=== PATIENT | female | born 1940 | race Caucasian/White ===

== ENCOUNTER 2017-05-11 07:53 | Outpatient (CLI) | payer MEDICARE, BC | END 2017-05-11 07:54 | disposition home or self-care (01) | LOC: BICMAMMO 07:53 | PROVIDERS: ATTEND Internal Medicine | DX: Z12.31 Encounter for screening mammogram for malignant neoplasm of breast (principal); Z13.820 Encounter for screening for osteoporosis; M81.0 Age-related osteoporosis without current pathological fracture | CPT/HCPCS: 77063; 77067; 77080 ==

== ENCOUNTER 2017-07-15 08:08 | Outpatient (CLI) | payer MEDICARE, BC | END 2017-07-15 08:09 | disposition home or self-care (01) | LOC: BICRAD 08:08 | PROVIDERS: ATTEND Internal Medicine | DX: R05 Cough (principal) | CPT/HCPCS: 71046 ==

== ENCOUNTER 2017-08-10 07:42 | Outpatient (CLI) | payer MEDICARE, BC | END 2017-08-10 07:43 | disposition home or self-care (01) | LOC: BICCT 07:42 | PROVIDERS: ATTEND Internal Medicine | DX: J32.9 Chronic sinusitis, unspecified (principal); J34.89 Other specified disorders of nose and nasal sinuses ==

== ENCOUNTER 2018-01-13 15:03 | Outpatient (CLI) | payer MEDICARE, BC ==
[~2018-01-13 15:03] MED LIST: Gadobenate Dimeglumine 529 MG/1 ML (20ML VIAL) ONE
== END 2018-01-13 15:04 | disposition home or self-care (01) ==
LOC: BICMRI 15:03
PROVIDERS: ATTEND Internal Medicine
DX: R47.81 Slurred speech (principal); R20.2 Paresthesia of skin; R42 Dizziness and giddiness; R53.1 Weakness; H74.8X1 Other specified disorders of right middle ear and mastoid
CPT/HCPCS: 70553; 82565; A9579

== ENCOUNTER 2018-05-14 07:52 | Outpatient (CLI) | payer MEDICARE, BC | END 2018-05-14 07:53 | disposition home or self-care (01) | LOC: BICMAMMO 07:52 | PROVIDERS: ATTEND Internal Medicine | DX: Z12.31 Encounter for screening mammogram for malignant neoplasm of breast (principal); R92.1 Mammographic calcification found on diagnostic imaging of breast | CPT/HCPCS: 77063; 77067 ==

== ENCOUNTER 2018-06-23 08:21 | Outpatient (CLI) | payer MEDICARE, BC ==
--- NOTE | 2018-06-23 10:33 | BD ---
Exam: DEXA Bone Density Date: 06-23-18 Comparison: 05-11-17 History: Osteoporosis. Lumbar Spine: BMD (g/cm2) Previous L1 0.722 T-Score: -2.4 -2.3 L2 0.730 T-Score: -2.7 -2.7 L3 0.911 T-Score: -1.6 -2.3 L4 1.015 T-Score: -0.4 -1.6 L1-L4 0.852 T-Score: -1.8 -2.2 Femoral Neck: 0.425 T-Score: -3.8 -3.8 Total Femur: 0.507 T-Score: -3.6 -3.3 The FRAX/WHO fracture risk assessment tool was not reported as some T-scores are at or below -2.5 Impression: Femoral neck osteoporosis, correlating with a high risk for fracture. Osteopenia is noted throughout the lumbar spine with focal osteoporosis at L2. POS: ANNELISE
== END 2018-06-23 08:22 | disposition home or self-care (01) ==
LOC: BICMAMMO 08:21
PROVIDERS: ATTEND Internal Medicine Rheumatology
DX: M81.0 Age-related osteoporosis without current pathological fracture (principal); M85.88 Other specified disorders of bone density and structure, other site
CPT/HCPCS: 77080

== ENCOUNTER 2018-11-15 08:26 | Outpatient (CLI) | payer MEDICARE, BC ==
--- NOTE | 2018-11-15 10:45 | ULT ---
Renal sonogram HISTORY: Recurrent urinary tract infections. FINDINGS: Right kidney is 11.2 cm. Multiple cysts measuring up to 1.2 cm. No solid masses.. No hydron ephrosis. Left kidney is 11.2 cm. Largest cyst is at the inferior pole measuring up to 4.6 cm. No hydronephrosi s. Urinary bladder shows no focal abnormalities. Prevoid volume of 206 cc. Postvoid volume of 28 cc. IMPRESSION: Bilateral renal cysts. No evidence of urinary tract obstruction. No focal bladder abnormalities. Small post void urinary bladder residual, 28 cc.
== END 2018-11-15 08:27 | disposition home or self-care (01) ==
LOC: ULT 08:26
PROVIDERS: ATTEND Internal Medicine
DX: N39.0 Urinary tract infection, site not specified (principal); R39.81 Functional urinary incontinence; Z87.440 Personal history of urinary (tract) infections; N28.1 Cyst of kidney, acquired
CPT/HCPCS: 76770

== ENCOUNTER 2019-05-16 09:08 | Outpatient (CLI) | payer MEDICARE, BC ==
--- NOTE | 2019-05-16 11:51 | MMO ---
Bilateral MAMMO Bilat Screen [facility]. CLINICAL HISTORY: Patient is 79 years old and is seen for screening. The patient has no family history of breast cancer. The patient has no personal history of cancer. VIEWS: The views performed were: bilateral craniocaudal with tomosynthesis and bilateral mediolateral oblique with tomosynthesis. FILMS COMPARED: The present examination has been compared to prior imaging studies performed at [facility] on 04/17/2015, 04/21/2016, 05/11/2017 and 05/14/2018. This study has been interpreted with the assistance of computer-aided detection. MAMMOGRAM FINDINGS: The breasts are heterogeneously dense, which could obscure a lesion on mammography. There are no suspicious masses, suspicious calcifications, or new areas of architectural distortion. IMPRESSION: THERE IS NO MAMMOGRAPHIC EVIDENCE OF MALIGNANCY. A ROUTINE FOLLOW-UP MAMMOGRAM IN 1 YEAR IS RECOMMENDED. THE RESULTS OF THIS EXAM WERE SENT TO THE PATIENT. ACR BI-RADS Category 1 - Negative MAMMOGRAPHY NOTE: 1. A negative mammogram report should not delay a biopsy if a dominant of clinically suspicious mass is present. 2. Approximately 10% to 15% of breast cancers are not detected by mammography. 3. Adenosis and dense breasts may obscure an underlying neoplasm. Reported by: WILBERT TOBIN MD Electonically Signed: [id number]
== END 2019-05-16 09:09 | disposition home or self-care (01) ==
LOC: BICMAMMO 09:08
PROVIDERS: ATTEND Internal Medicine
DX: Z12.31 Encounter for screening mammogram for malignant neoplasm of breast (principal)
CPT/HCPCS: 77063; 77067

== ENCOUNTER 2019-06-28 08:33 | Outpatient (CLI) | payer MEDICARE, BC ==
--- NOTE | 2019-06-28 09:04 | BD ---
EXAM: DEXA bone density examination HISTORY: 79-year-old postmenopausal female for screening COMPARISON: 06/23/2018 FINDINGS: L1--bone mineral density 0.747 g/sq cm; T score -2.2 L2--bone mineral density 0.718 g/sq cm; T score -2.8 L3--bone mineral density 0.847 g/sq cm; T score -2.2 L4--bone mineral density 1.013 g/sq cm; T score -0.4 Total L1-L4--bone mineral density 0.849 g/sq cm; T score -1.8 Left femoral neck--bone mineral density0.593; T score -2.3 Total proximal left femur--bone mineral density 0.541; T score -3.3 IMPRESSION: Osteopenia.
== END 2019-06-28 08:34 | disposition home or self-care (01) ==
LOC: BICMAMMO 08:33
PROVIDERS: ATTEND Internal Medicine Rheumatology
DX: M81.0 Age-related osteoporosis without current pathological fracture (principal); M85.89 Other specified disorders of bone density and structure, multiple sites
CPT/HCPCS: 77080

== ENCOUNTER 2019-11-03 13:51 | Inpatient (IN) | payer MEDICARE, BC ==
[2019-11-03] MEDS ORDERED: Morphine 4 MG/ML VIAL ONE ×2 (15:16→16:38)
--- NOTE | 2019-11-03 15:48 | RAD ---
Exam:Left femur 2 views HISTORY: Fall. Pain. COMPARISON: None FINDINGS: Comminuted intertrochanteric fracture with dislocation of the lesser trochanter. IMPRESSION: Intertrochanteric fracture.
--- NOTE | 2019-11-03 15:50 | RAD ---
Exam: One view pelvis HISTORY: Fall. Pain Comparison none FINDINGS: Chronic changes of the symphysis pubis. Probable remote injury involving the left and right inferior pubic rami. If there is concern for acute injury, pelvic CT can be performed. Visualized sacral ala and bony pelvis appear to be intact. Evaluation is limited by overlying bowel g as and fecal material. Uncomplicated right hip arthroplasty. Intertrochanteric fracture with displacement of the lesser trochanter. IMPRESSION: 1. Left hip fracture. 2. Indeterminate injury involving the left and right inferior pubic rami. Correlate clinically.
[2019-11-03 15:54] LABS: #Basophils 0.1 thou/uL (0.0-0.2); #Eosinphils 0.1 thou/uL (0.0-0.7); #Lymphocytes 1.3 thou/uL (1.20-3.40); #Monocytes 0.8 thou/uL (0.11-0.59); #Neutrophils 7.1 thou/uL (1.40-6.50); %Basophils 1.2 % (0.0-1.0); %Eosinophils 0.9 % (0.0-10.0); %Lymphocytes 13.6 % (21.0-51.0); %Monocytes 8.2 % (0.0-10.0); %Neutrophils 76.1 % (42.0-75.0); Hemoglobin 13.7 g/dL (12.0-16.0); Mean Corpuscular HGB CONC 32.9 g/dL (32.0-36.0); Mean Corpuscular Hemoglobin 32.6 pg (27.0-31.0); Mean Corpuscular Volume 98.9 fL (78.0-98.0); Mean Platelet Volume 9.9 fL (7.4-10.4); Platelet Count 175 thou/uL (130-400); RBC Distribution Width 11.5 % (11.5-14.5); White Blood Cell (WBC) Count 9.3 thou/uL (4.8-10.8)
[2019-11-03 16:15] LABS: ALT (SGPT) 16 U/L (8-55); AST (SGOT) 26 U/L (5-34); Albumin 4.3 g/dL (3.4-4.8); Alkaline Phosphatase 46 U/L (40-110); Anion Gap 16 mmol/L (10-20); BUN (Urea Nitrogen) 17 mg/dL (9.8-20.1); Calc. Creatinine Clearance 0 mL/min (70-130); Calcium 9.9 mg/dL (7.8-10.44); Carbon Dioxide 24 mmol/L (23-31); Chloride 105 mmol/L (98-107); Estimated GFR-MDRD 66; Globulin 2.7 g/dL (2.4-3.5); Glucose 138 mg/dL (83-110); Potassium 5.1 mmol/L (3.5-5.1); Sodium 140 mmol/L (136-145)
--- NOTE | 2019-11-03 16:31 | RAD ---
LEFT HIP 2 VIEWS: Date: 11/03/2019 HISTORY: Fall with injury. FINDINGS/IMPRESSION: Comminuted, displaced intertrochanteric fracture proximal femur is noted. There is mild angulation an d displacement of the fragments. POS: [facility]
[2019-11-03] MEDS ORDERED: Dextrose 50% Abboject 50 ML SYRINGE SLOW IVP PRN (17:03)
[2019-11-03] MEDS ORDERED: Dextrose 5% in Water 1,000 ML IV PRN (17:03)
[2019-11-03] MEDS ORDERED: Promethazine HCl 25 MG/ML VIAL IM PRN (17:03)
[2019-11-03] MEDS ORDERED: Ondansetron PF 4 MG/2 ML Vial IVP PRN (17:03)
[2019-11-03] MEDS ORDERED: Ketorolac Tromethamine 30 MG/ML VIAL IVP SCH (17:15)
--- NOTE | 2019-11-03 17:37 | CON ---
DATE OF CONSULTATION: CHIEF COMPLAINT: Left hip pain. HISTORY OF PRESENT ILLNESS: Ms. Anderson is a 79-year-old female who was walking on her uneven driveway. She tripped and lost her balance. She fell backward onto her butt. She had pain in her leg. She was unable to ambulate or rise. X-rays have been obtained after she was taken to the hospital for evaluation. She is currently in the emergency department. X-rays have shown an intertrochanteric femur fracture on the left. She has known osteoporosis. She has received pain control. PAST MEDICAL HISTORY: 1. Osteoporosis. 2. Hypertension. PAST SURGICAL HISTORY: 1. Appendectomy. 2. Knee arthroscopic surgery. ALLERGIES: NO KNOWN DRUG ALLERGIES. MEDICATIONS: The patient reports only taking a blood pressure medicine. IMAGING STUDIES: X-rays of the pelvis and left hip demonstrated an intertrochanteric femur fracture, which is displaced with shortening of the femur. PHYSICAL EXAMINATION: VITAL SIGNS: Stable. She is afebrile. GENERAL: She is alert and oriented, in no apparent distress, lying supine. HEENT: Normocephalic and atraumatic. RESPIRATORY: Breathing comfortably. ABDOMEN: Soft, nontender, and nondistended. MUSCULOSKELETAL: The patient's left leg is shortened and externally rotated. She has palpable dorsalis pedis pulse. She can flex and extend the toes and ankle. She has skin intact. Upper extremities and right lower extremity are atraumatic. IMPRESSION: Left intertrochanteric femur fracture in an elderly female with osteoporosis. PLAN: At this point, the patient will need to go to the operating room for intramedullary nail stabilization of her femur. She has had review of her risks and benefits. She wants to proceed with surgery. She will be n.p.o. She will have pain control. She will have antibiotics on-call to the operating room. Job ID: [id number]
[2019-11-03] MEDS ORDERED: CEFAZOLIN 2 GM in Premix Bag 1 BAG IVPB SCH (19:00)
[2019-11-03] MEDS ORDERED: Midazolam HCl 2 mg/2 ml Vial ONE (22:40)
[2019-11-03] MEDS ORDERED: Fentanyl 100 MCG/2 ML VIAL ONE (22:40)
[2019-11-03] MEDS ORDERED: Dexamethasone 20 MG/5 ML VIAL ONE (23:06)
[2019-11-03] MEDS ORDERED: Succinylcholine Chloride 20 MG/ML 10 ml SYRINGE FS ONE (23:06)
[2019-11-03] MEDS ORDERED: EPHEDRINE 25 MG/5 ML SYRINGE ONE (23:06)
[2019-11-03] MEDS ORDERED: Rocuronium Bromide 10 MG/ML (10ML VIAL) ONE (23:06)
[2019-11-03] MEDS ORDERED: Ketorolac Tromethamine 30 MG/ML VIAL ONE (23:06)
[2019-11-03] MEDS ORDERED: Glycopyrrolate 0.2 MG/ML 5 ML SYRINGE ONE (23:06)
[2019-11-03] MEDS ORDERED: PROPOFOL 200 MG/20 ML VIAL ONE (23:06)
[2019-11-03] MEDS ORDERED: Ondansetron PF 4 MG/2 ML Vial ONE (23:06)
--- NOTE | 2019-11-04 | OP ---
DATE OF PROCEDURE: 11/03/2019 PROCEDURE PERFORMED: Left femur intramedullary nail. PREOPERATIVE DIAGNOSIS: Left displaced intertrochanteric femur fracture. POSTOPERATIVE DIAGNOSIS: Left displaced intertrochanteric femur fracture. COMPLICATIONS: None. ESTIMATED BLOOD LOSS: 100 mL. ANESTHESIA: General. IMPLANT: Synthes 11 mm short trochanteric nail with helical blade. INDICATIONS: Ms. Anderson is a 79-year-old female, who has fallen and fractured her left intertrochanteric femur. She has been indicated for intramedullary nail fixation of the femur to restore anatomic alignment and promote healing and allow immobilization. Risks have been reviewed in detail. She has elected to proceed with the operation. DESCRIPTION OF PROCEDURE: Ms. Anderson was identified in the preoperative holding area. Her correct extremity was marked. She was carried to the operating room. She was positioned supine. General anesthesia was induced. A multidisciplinary time-out was performed. The left lower extremity was prepped and draped in sterile fashion. We began the procedure with making a small incision proximal to the greater trochanter. We dissected down to the tip of the trochanter and inserted a guidewire. We over-reamed the guidewire. We then inserted our 11 mm trochanteric nail. We seated this appropriately. We then passed a guidewire into the centered position of the femoral head. This was overdrilled. We then impacted the helical blade and locked this in a dynamic position. Finally, we placed a distal Crosslock screw. We took x-ray images confirming hardware placement. There were no complications. We thoroughly irrigated and closed all wounds in layers. A sterile dressing was applied. The patient was taken to the recovery room in good condition. Job ID: [id number]
[2019-11-04] MEDS ORDERED: Ondansetron HCl/PF 4 MG/2 ML Vial IVP PRN (00:01)
[2019-11-04] MEDS ORDERED: Fentanyl 100 MCG/2 ML VIAL ONE ×2 (00:04→00:27)
--- NOTE | 2019-11-04 00:17 | RAD ---
XR Hip Lt 2-3 View History: ORIF left hip Comparison: Hip radiograph same day Findings: Intramedullary nail with antirotation screw intertrochanteric fracture left femur. Impression: Satisfactory postoperative appearance.
--- NOTE | 2019-11-04 01:03 | PRG ---
DATE OF SERVICE: 11/03/2019 SUBJECTIVE: The patient was seen during evening rounds in the post acute care unit. The patient just had a left femur intramedullary nail placement for her left intertrochanteric femur fracture by Dr. Lemon. The patient is currently sleepy, arousable. The patient's pain is well controlled at this time. OBJECTIVE: VITAL SIGNS: Stable. GENERAL: Well-appearing elderly female, in no acute distress. RESPIRATORY: Equal chest rise and fall, respirations are even and nonlabored. ASSESSMENT: 1. Status post mechanical fall. 2. Left intertrochanteric femur fracture, postop day #0, intramedullary nail placement. 3. Acute traumatic pain. 4. History of hypertension and osteoporosis. PLAN: Regular diet as tolerated. Continue Quiñonez catheter overnight. We will have Physical and Occupational Therapy work with the patient in the morning. Pain control and bowel regimen. We will repeat labs in the morning. As long as the patient's hemoglobin and hematocrit are stable, the patient will be placed on chemical VTE prophylaxis. Rehab screen has been placed as the patient will most likely need additional physical and occupational therapy. Job ID: [id number]
[2019-11-04] MEDS: Sodium Chloride 0.9% 1,000 ML IV SCH ×3 (01:16→11:32)
[2019-11-04] MEDS: Famotidine/PF 20 mg/2ml Vial SLOW IVP SCH ×3 (01:16→19:59)
[2019-11-04 01:25] VITALS: BMI 18.8
[2019-11-04 05:44] LABS: #Lymphocytes 0.4 thou/uL (1.20-3.40); #Monocytes 0.6 thou/uL (0.11-0.59); %Lymphocytes 3.1 % (21.0-51.0); %Monocytes 4.2 % (0.0-10.0); %Neutrophils 92.8 % (42.0-75.0); Mean Corpuscular HGB CONC 32.9 g/dL (32.0-36.0); Mean Corpuscular Hemoglobin 32.7 pg (27.0-31.0); Mean Corpuscular Volume 99.5 fL (78.0-98.0); Mean Platelet Volume 9.6 fL (7.4-10.4); Platelet Count 161 thou/uL (130-400); RBC Distribution Width 11.4 % (11.5-14.5); Red Blood Cell (RBC) Count 3.07 mill/uL (4.20-5.40)
[2019-11-04] MEDS: CEFAZOLIN 2 GM in Premix Bag 1 BAG IVPB SCH ×2 (05:45→14:57)
[2019-11-04 05:50] LABS: Anion Gap 9 mmol/L (10-20); BUN (Urea Nitrogen) 16 mg/dL (9.8-20.1); Calc. Creatinine Clearance 51 mL/min (70-130); Calcium 7.6 mg/dL (7.8-10.44); Carbon Dioxide 23 mmol/L (23-31); Chloride 109 mmol/L (98-107); Estimated GFR-MDRD 71; Glucose 215 mg/dL (83-110); Magnesium 1.8 mg/dL (1.6-2.6); Phosphorus 3.7 mg/dL (2.3-4.7); Potassium 4.4 mmol/L (3.5-5.1); Sodium 137 mmol/L (136-145)
[2019-11-04] MEDS: traMADol HCl 50 MG TAB PO PRN ×2 (08:44→16:57)
[2019-11-04] MEDS ORDERED: Magnesium 2 GM/50 ML 2 GM in Premix Bag 1 BAG IVPB SCH (10:00)
[2019-11-04] MEDS ORDERED: PHOS-NAK 1 PKT PACK PO SCH (10:00)
--- NOTE | 2019-11-04 10:39 | HP ---
HISTORY OF PRESENT ILLNESS: A 79-year-old woman was ambulating, she was wearing a pair of tennis shoes. The patient reportedly tripped on a cracked concrete sidewalk and fell, landing on her left hip. She immediately experienced pain. She was transported via ground EMS to [facility]. She arrived hemodynamically stable. She denies any head trauma or loss of consciousness. She is complaining of left hip pain, which she rated at 5/10 after administration of intravenous analgesics. She otherwise moved all extremities and answers questions appropriately. Her Windy Coma Scale remains at 15. She denies any chest pain, syncope, or dyspnea. She denies any abdominal pain. PAST MEDICAL HISTORY: Pertinent for: 1. Essential hypertension. 2. Osteoporosis. 3. Degenerative arthritic disease. 4. Hyperlipidemia. PAST SURGICAL HISTORY: Pertinent for: 1. Right hip arthroplasty in 2003. 2. Childhood tonsillectomy and adenoidectomy. 3. Appendectomy. SOCIAL HISTORY: She lives independently. She is a retired employee of [employer] where she worked in the [employer] department. She denies any cigarette smoking, ethanol, or illicit drug abuse. FAMILY HISTORY: Pertinent for mother who from complications of pancreatic carcinoma. She denies any family history of diabetes mellitus, heart disease, or essential hypertension. PREHOSPITALIZATION MEDICATION: Includes antihypertensive as well as lipid-lowering medications. She does not recall the specifics. We will make an attempt to secure those from her pharmacy or primary care physician. ALLERGIES: THE PATIENT DENIES ANY KNOWN DRUG ALLERGIES. REVIEW OF SYSTEMS: Ten-point review of systems essentially unremarkable except as stated in past medical history and chief complaint. PHYSICAL EXAMINATION: GENERAL: A 79-year-old normally developed woman who is otherwise coherent and interactive and appears stated age. The patient is alert and oriented x3. She appears to be in no acute distress at the time of my evaluation. VITAL SIGNS: Blood pressure 151/91, pulse is 69, respiratory rate is 16, temperature 99.8 degrees Fahrenheit, and oxygen saturation is 99% on room air. HEENT: Normocephalic and atraumatic. Pupils are equally round and reactive to light and accommodation. Both sclerae are dry and erythematous, but no drainage. CONTINUATION: PHYSICAL EXAMINATION: HEART: Reveals regular rate and rhythm. No murmurs or gallops auscultated. LUNGS: clear to auscultation bilaterally. Her breathing is regular and nonlabored. ABDOMEH: soft, nontender, and nondistended. Liver and spleen nonpalpable below costal margins. PELVIS: Stable. She has point tenderness to palpation of the left hip. EXTREMITIES: Reveal 2+ radial and pedal pulses bilaterally. No ankle edema is present. NEUROLOGIC: Reveals no focal deficits present. MUSCULOSKELETAL: Palpation of the cervical, thoracic, and lumbar spine reveals no tenderness or bony step-offs present. LABORATORY FINDINGS: Today include CBC with 9300 white blood cells, hemoglobin and hematocrit 13.7 and 41.6 respectively. Platelet count is 175. Metabolic profile; sodium 140, potassium 5.1, chloride is 105, bicarb is 24, BUN 17, creatinine 0.84, glucose is 138, total bilirubin is 1.0, AST and ALT 26 and 16 respectively. I have personally reviewed all radiographic studies including x-ray of the pelvis, which is remarkable for comminuted slightly displaced left intertrochanteric femur fracture. X-ray of the left hip confirms the aforementioned hip fracture. X-ray of the left femur reveals no femoral shaft fractures. IMPRESSION: 1. Status post ground level fall. 2. Complete displaced comminuted left intertrochanteric femur fracture. 3. History of essential hypertension. 4. History of osteoporosis. 5. History of hyperlipidemia. PLAN: Orthopedic surgical consultation with Dr. Lemon regarding the left hip fracture. The patient will be admitted to the Trauma Service. We will initiate nonpharmacological VTE prophylaxis, which will be converted to chemical VTE prophylaxis postoperatively. Initiate prophylaxis against gastritis. We will ask PT and OT to evaluate the patient postoperatively. Anticipate 1 to 2 days of hospitalization, following which the patient will be transferred to inpatient rehavilitation. Above findings and plan have been discussed with the patient who indicates understanding of information given. I have answered her questions. The patient has granted consent for this admission and proposed surgical intervention per Orthopedic Surgery. Job ID: [id number]
[2019-11-04] MEDS ORDERED: Hydrocortisone Sod Succ/PF 100 mg/2 ml Vial IVP SCH (14:45)
--- NOTE | 2019-11-04 17:09 | PRG ---
DATE OF SERVICE: 11/04/2019 SUBJECTIVE: The patient was seen this afternoon during rounds. She was sitting up in the chair with no signs of acute distress. She is postoperative day 1 after IM nail left intertrochanteric femur fracture. The patient this morning with lower blood pressure systolic in the 80s. She is currently on IV fluid. She will receive hydrocortisone for acute adrenal insufficiency. We will ask nurses to closely monitor her I's and O's and repeat blood work in the morning. Otherwise, her mentation is normal. OBJECTIVE: VITAL SIGNS: Temperature 98.1, pulse 70, respirations 18, oxygen saturation 97% on room air, and blood pressure 92/59. GENERAL: Well-appearing elderly female, sitting up in chair with no signs of acute distress. PULMONARY: Equal chest rise and fall. Clear breath sounds bilaterally. No signs of acute respiratory distress. CARDIAC: Regular rate and rhythm. GI: Abdomen is soft, nontender, nondistended. EXTREMITIES: 2+ pulses in all extremities. Gross motor and sensation intact. No significant swelling noted. NEUROLOGIC: GCS is 15. LABORATORY FINDINGS: White count 14.0, hemoglobin 10.0, hematocrit 30.5, and platelets 161. Sodium 137, potassium 4.4, chloride 109, bicarb 23, BUN 16, creatinine 0.78, glucose 215, phosphorus 3.7, and magnesium 1.8. Cortisols 14.3. DIAGNOSTIC FINDINGS: There are no new diagnostic findings to report. ASSESSMENT: 1. Status post mechanical fall from standing. 2. Left intertrochanteric femur fracture, status post repair. 3. Acute adrenal insufficiency. 4. History of hypertension and osteoporosis. PLAN: Continue current diet. Discontinue IV fluids. Start hydrocortisone 100 mg once IV followed by 50 mg q.6 hours for acute adrenal insufficiency. Continue physical and occupational therapy pending placement at an acute rehab facility versus intermediate facility. Closely monitor blood pressure. This patient was seen and evaluated by Dr. Grant and myself this afternoon during rounds. Job ID: [id number]
[2019-11-04] MEDS: Simvastatin 5 MG TAB PO SCH (19:57)
[2019-11-04] MEDS: Hydrocortisone Sod Succ/PF 100 mg/2 ml Vial IVP SCH (20:01)
[2019-11-05] MEDS: Hydrocortisone Sod Succ/PF 100 mg/2 ml Vial IVP SCH ×4 (03:39→20:24)
[2019-11-05 06:21] LABS: Band 28 % (5-11); Hemoglobin 7.6 g/dL (12.0-16.0); Lymphocytes 2 % (21-51); MDiff Complete? YES; Mean Corpuscular HGB CONC 32.8 g/dL (32.0-36.0); Mean Corpuscular Hemoglobin 33.1 pg (27.0-31.0); Mean Platelet Volume 9.2 fL (7.4-10.4); Monocytes 6 % (0-10); Neutrophil 64 % (42-75); Platelet Count 132 thou/uL (130-400); Platelet Morphology Comment Appears Adequate; RBC Distribution Width 11.4 % (11.5-14.5); White Blood Cell (WBC) Count 13.1 thou/uL (4.8-10.8)
[2019-11-05 06:31] LABS: Anion Gap 13 mmol/L (10-20); BUN (Urea Nitrogen) 17 mg/dL (9.8-20.1); Calc. Creatinine Clearance 53 mL/min (70-130); Calcium 7.8 mg/dL (7.8-10.44); Carbon Dioxide 20 mmol/L (23-31); Chloride 106 mmol/L (98-107); Estimated GFR-MDRD 75; Glucose 168 mg/dL (83-110); Magnesium 2.4 mg/dL (1.6-2.6); Phosphorus 2.7 mg/dL (2.3-4.7); Potassium 4.6 mmol/L (3.5-5.1); Sodium 134 mmol/L (136-145)
[2019-11-05] MEDS: Famotidine/PF 20 mg/2ml Vial SLOW IVP SCH ×2 (08:31→20:25)
[2019-11-05] MEDS ORDERED: Sodium Phosphate 15 MMOL in Sodium Chloride 0.9% 250 ML 250 ML IVPB SCH (10:00)
[2019-11-05] MEDS: traMADol HCl 50 MG TAB PO PRN (13:36)
--- NOTE | 2019-11-05 18:58 | PRG ---
DATE OF SERVICE: 11/05/2019 SUBJECTIVE: The patient was seen this morning during rounds. She was sitting up in a recliner, starting to work with the physical therapist. She reported her pain is well controlled. She is tolerating her diet and she is voiding without difficulties. OBJECTIVE: VITAL SIGNS: Temperature 98.1, pulse 86, respirations 14, oxygen saturation 99% on room air, and blood pressure 109/68. GENERAL: Well-appearing elderly female, sitting up in chair with no signs of acute distress. PULMONARY: Equal chest rise and fall. Clear breath sounds bilaterally. No signs of acute respiratory distress. CARDIAC: Regular rate and rhythm. GI: Abdomen is soft, nontender, and nondistended. EXTREMITIES: 2+ pulses in all extremities. Gross motor and sensation are intact. No significant swelling noted. NEUROLOGIC: GCS is 15. LABORATORY FINDINGS: White count 13.1, hemoglobin 7.6, hematocrit 23.2, platelets 132. Sodium 134, potassium 4.6, chloride 106, bicarb 20, BUN 17, creatinine 0.75, glucose 168, phosphorus 2.7 magnesium 2.4, cortisols 14.3. DIAGNOSTIC FINDINGS: There are no new diagnostic findings to report. ASSESSMENT: 1. Status post mechanical fall from standing. 2. Left intertrochanteric femur fracture, status post repair. 3. Acute adrenal insufficiency, stable. 4. History of hypertension and osteoporosis. PLAN: Continue current diet and pain regimen. Continue hydrocortisone. Start aspirin for DVT prophylaxis. Replace phosphorus today. Repeat blood work. Continue physical and occupational therapy. The patient will need placement at acute rehab facility. Physical Therapy is also recommending rehab. We will ask Case Management to start working on this and she is ready for discharge at this time. Repeat blood work in the morning. Job ID: [id number]
[2019-11-05] MEDS: Aspirin 81 mg Enteric Coated Tablet PO SCH (20:25)
[2019-11-05] MEDS: Simvastatin 5 MG TAB PO SCH (20:25)
[2019-11-06] MEDS: Hydrocortisone Sod Succ/PF 100 mg/2 ml Vial IVP SCH ×2 (03:52→16:56)
[2019-11-06 05:29] LABS: Hemoglobin 6.9 g/dL (12.0-16.0); Mean Corpuscular HGB CONC 33.2 g/dL (32.0-36.0); Mean Corpuscular Hemoglobin 33.1 pg (27.0-31.0); Mean Corpuscular Volume 99.5 fL (78.0-98.0); Platelet Count 142 thou/uL (130-400); RBC Distribution Width 11.4 % (11.5-14.5); Red Blood Cell (RBC) Count 2.07 mill/uL (4.20-5.40)
[2019-11-06 05:47] LABS: Anion Gap 7 mmol/L (10-20); BUN (Urea Nitrogen) 21 mg/dL (9.8-20.1); Calc. Creatinine Clearance 60 mL/min (70-130); Calcium 8.1 mg/dL (7.8-10.44); Carbon Dioxide 27 mmol/L (23-31); Chloride 106 mmol/L (98-107); Estimated GFR-MDRD 87; Glucose 156 mg/dL (83-110); Magnesium 2.2 mg/dL (1.6-2.6); Phosphorus 2.4 mg/dL (2.3-4.7); Potassium 4.4 mmol/L (3.5-5.1); Sodium 136 mmol/L (136-145)
[2019-11-06] MEDS: Aspirin 81 mg Enteric Coated Tablet PO SCH ×2 (08:38→20:45)
[2019-11-06] MEDS: Simvastatin 5 MG TAB PO SCH (20:45)
[2019-11-06] MEDS: Ascorbic Acid 500 mg Chewable Tablet PO SCH (20:45)
--- NOTE | 2019-11-06 21:14 | PRG ---
DATE OF SERVICE: 11/06/2019 SUBJECTIVE: Patient was seen this morning during rounds. She was sitting up in a chair with no signs of acute distress. She reported pain is well controlled. She is receiving 1 unit of packed red blood cells for a hemoglobin of 6.9. She is hemodynamically stable. OBJECTIVE: VITAL SIGNS: Temperature 98.3, pulse 69, respirations 18, oxygen saturation 99% on room air, and blood pressure 105/69. GENERAL: Well-appearing elderly female, lying in bed with no signs of acute distress. PULMONARY: Equal chest rise and fall. Clear breath sounds bilaterally. No signs of acute respiratory distress. CARDIAC: Regular rate and rhythm. GASTROINTESTINAL: Abdomen is soft, nontender, and nondistended. EXTREMITIES: 2+ pulses in all extremities. Gross motor and sensation intact. No significant swelling noted. NEUROLOGIC: GCS is 15. LABORATORY FINDINGS: White count 14.0, hemoglobin 6.9, hematocrit 20.6, platelets 142. Sodium 136, potassium 4.4, chloride 106, bicarb 27, BUN 21, creatinine 0.66, glucose is 156, phosphorus 2.4, magnesium 2.2. DIAGNOSTIC FINDINGS: There are no new diagnostic findings to report. ASSESSMENT: 1. Status post mechanical fall from standing. 2. Left intertrochanteric femur fracture, status post repair. 3. Acute adrenal insufficiency, stable. 4. Acute blood loss anemia. 5. History of hypertension and osteoporosis. PLAN: Continue current diet and pain regimen. Decrease hydrocortisone to 50 q.12 hours. Give the patient 1 unit of packed red blood cells for hemoglobin of 6.9, although she is hemodynamically stable. Continue aspirin. We will start the patient on iron and vitamin C. The patient is pending discharge to acute rehab facility. She is ready for discharge at this time. Job ID: [id number]
[2019-11-07] MEDS: Hydrocortisone Sod Succ/PF 100 mg/2 ml Vial IVP SCH ×2 (05:23→17:03)
[2019-11-07 05:27] LABS: Hemoglobin 7.8 g/dL (12.0-16.0); Mean Corpuscular HGB CONC 33.2 g/dL (32.0-36.0); Mean Corpuscular Hemoglobin 32.7 pg (27.0-31.0); Mean Corpuscular Volume 98.7 fL (78.0-98.0); Mean Platelet Volume 9.7 fL (7.4-10.4); Platelet Count 157 thou/uL (130-400); RBC Distribution Width 11.9 % (11.5-14.5); Red Blood Cell (RBC) Count 2.39 mill/uL (4.20-5.40)
[2019-11-07] MEDS: traMADol HCl 50 MG TAB PO PRN ×3 (05:43→18:26)
[2019-11-07] MEDS ORDERED: Senokot S 8.6-50 MG TAB PO SCH (09:00)
[2019-11-07] MEDS ORDERED: Polyethylene Glycol 3350 17 GM Packet PO SCH (09:00)
[2019-11-07] MEDS: Ascorbic Acid 500 mg Chewable Tablet PO SCH (09:22)
[2019-11-07] MEDS: Ferrous Sulfate 325 MG TAB PO SCH ×2 (09:31→17:29)
[2019-11-07] MEDS: Aspirin 81 mg Enteric Coated Tablet PO SCH (09:31)
[2019-11-07 16:44] VITALS: BP 141/75; TEMP 98.3
[2019-11-07] MEDS ORDERED: Ascorbic Acid 500 mg Chewable Tablet PO SCH (17:00)
--- NOTE | 2019-11-08 12:25 | DIS ---
DATE OF ADMISSION: 11/04/2019 DATE OF DISCHARGE: 11/07/2019 ADMISSION DIAGNOSES: Mechanical fall from standing, left intertrochanteric femur fracture. DISCHARGE DIAGNOSES: Mechanical fall from standing, left intertrochanteric femur fracture, acute adrenal insufficiency, and acute blood loss anemia. PROCEDURES: The patient went to the OR on November 03, 2019, and had an IM nail of the left intertrochanteric femur fracture. HOSPITAL COURSE: The patient is a 79-year-old female, presented to the emergency department after a mechanical fall. She was found to have a left intertrochanteric femur fracture. She went to the OR on the day of admission and had an IM nail of left intertrochanteric femur by Dr. Lemon. Postoperatively, she worked with Physical and Occupational Therapy. The patient was hypotensive postoperatively and was diagnosed with acute adrenal insufficiency, for which she received hydrocortisone. Subsequently, she also developed acute blood loss anemia and received 1 unit of packed red blood cells. On the , she was not hemodynamically unstable at any point. The next day, her hemoglobin up-trended appropriately and she remained hemodynamically stable. The hydrocortisone was down trended. At the time of discharge, the patient's pain was well controlled, she was tolerating a regular diet, working with Physical and Occupational Therapy, and voiding without difficulty. CONSULTING PHYSICIAN: Dr. Lemon of Orthopedic Surgery. DISCHARGE DISPOSITION: Acute rehab. DISCHARGE CONDITION: Satisfactory. PHYSICAL EXAMINATION: VITAL SIGNS: Temperature 98.5, pulse 80, respirations 16, oxygen saturation 96% on room air, and blood pressure 121/75. GENERAL: Well-appearing elderly female, sitting up in chair with no signs of acute distress. PULMONARY: Equal chest rise and fall. No signs of acute respiratory distress. CARDIAC: Regular rate and rhythm. DISCHARGE INSTRUCTIONS: The patient was discharged to acute rehab facility. Activity as tolerated. Weightbearing as tolerated in all extremities. She will have a regular diet and Ensure. She will receive physical therapy and occupational therapy. She will have incentive spirometer and walker. DISCHARGE MEDICATIONS: Include: 1. Vitamin C. 2. Aspirin. 3. Ferrous sulfate. 4. Hydrocortisone. 5. Lisinopril. 6. MiraLAX. 7. Senokot-S. 8. Simvastatin. 9. Tramadol. FOLLOWUP APPOINTMENTS: The patient is to follow up with Dr. Lemon. No need for followup with Dr. Grant in Trauma Clinic. This is a summary of the patient's hospitalization. For full details, please see her medical record in its entirety. The patient was seen and examined on the day of discharge. Job ID: [id number]
== END 2019-11-07 18:45 | DRG 481 ==
LOC: ERS 13:51 → SDC/OP 23:03 → SURG A 11-04 00:55
PROVIDERS: ADMIT Surgery; ATTEND Surgery
PROC: 0QH736Z Insertion of Intramedullary Internal Fixation Device into Left Upper Femur, Percutaneous Approach (ICD-10-PCS; principal; 2019-11-03)
PROC: 30233N1 Transfusion of Nonautologous Red Blood Cells into Peripheral Vein, Percutaneous Approach (ICD-10-PCS; 2019-11-06)
DX: S72.142A Displaced intertrochanteric fracture of left femur, initial encounter for closed fracture (principal); E27.40 Unspecified adrenocortical insufficiency; D62 Acute posthemorrhagic anemia; W01.0XXA Fall on same level from slipping, tripping and stumbling without subsequent striking against object, initial encounter; I10 Essential (primary) hypertension; M81.0 Age-related osteoporosis without current pathological fracture; Z90.49 Acquired absence of other specified parts of digestive tract; Z79.899 Other long term (current) drug therapy
CPT/HCPCS: 36415; 36430; 72170; 76000; 80048; 80053; 82533; 83735; 84100; 85007; 85025; 85027; 86850; 86900; 86901; 93005; 94760; 96374; 96376; C1713; G0390; J0690; J1100; J1720; J1885; J2250; J2270; J2405; J2704; J3010; J3475; J7050; P9016; S0028

== ENCOUNTER 2020-05-18 07:56 | Outpatient (CLI) | payer MEDICARE, BC ==
--- NOTE | 2020-05-18 09:11 | MMO ---
Bilateral MAMMO Bilat Screen [facility]. CLINICAL HISTORY: Patient is 80 years old and is seen for screening. The patient has no family history of breast cancer. The patient has no personal history of cancer. VIEWS: The views performed were: bilateral craniocaudal with tomosynthesis and bilateral mediolateral oblique with tomosynthesis. FILMS COMPARED: The present examination has been compared to prior imaging studies performed at [facility] on 04/21/2016, 05/11/2017, 05/14/2018 and 05/16/2019. This study has been interpreted with the assistance of computer-aided detection. MAMMOGRAM FINDINGS: The breasts are heterogeneously dense, which could obscure a lesion on mammography. There are stable benign appearing calcifications seen in both breasts. There are also vascular calcifications. There are no suspicious masses, suspicious calcifications, or new areas of architectural distortion. IMPRESSION: THERE IS NO MAMMOGRAPHIC EVIDENCE OF MALIGNANCY. A ROUTINE FOLLOW-UP MAMMOGRAM IN 1 YEAR IS RECOMMENDED. THE RESULTS OF THIS EXAM WERE SENT TO THE PATIENT. ACR BI-RADS Category 2 - Benign finding MAMMOGRAPHY NOTE: 1. A negative mammogram report should not delay a biopsy if a dominant of clinically suspicious mass is present. 2. Approximately 10% to 15% of breast cancers are not detected by mammography. 3. Adenosis and dense breasts may obscure an underlying neoplasm. Reported by: KATIE JAIMES MD Electonically Signed: [id number]
== END 2020-05-18 07:57 | disposition home or self-care (01) ==
LOC: BICMAMMO 07:56
PROVIDERS: ATTEND Internal Medicine
DX: Z12.31 Encounter for screening mammogram for malignant neoplasm of breast (principal)
CPT/HCPCS: 77063; 77067

== ENCOUNTER 2020-07-18 07:54 | Outpatient (CLI) | payer MEDICARE, BC | END 2020-07-18 07:55 | disposition home or self-care (01) | LOC: BICMAMMO 07:54 | PROVIDERS: ATTEND Internal Medicine Rheumatology | DX: M81.0 Age-related osteoporosis without current pathological fracture (principal); M85.88 Other specified disorders of bone density and structure, other site | CPT/HCPCS: 77080 ==

== ENCOUNTER 2021-06-18 07:59 | Outpatient (CLI) | payer MEDICARE, BC | END 2021-06-18 08:00 | disposition home or self-care (01) | LOC: BICMAMMO 07:59 | PROVIDERS: ATTEND Internal Medicine | DX: Z12.31 Encounter for screening mammogram for malignant neoplasm of breast (principal) | CPT/HCPCS: 77063; 77067 ==

== ENCOUNTER 2021-08-05 07:58 | Outpatient (CLI) | payer MEDICARE, BC | END 2021-08-05 07:59 | disposition home or self-care (01) | LOC: BICMAMMO 07:58 | PROVIDERS: ATTEND Internal Medicine Rheumatology | DX: M81.0 Age-related osteoporosis without current pathological fracture (principal); M85.88 Other specified disorders of bone density and structure, other site | CPT/HCPCS: 77080 ==

== ENCOUNTER 2023-01-05 09:51 | Inpatient (IN) | payer MEDICARE, BC ==
[2023-01-05] MEDS ORDERED: hydrALAZINE 20 MG/ML VIAL SLOW IVP PRN (11:22)
[2023-01-05] MEDS ORDERED: Ipratropium/Albuterol 3 ML NEB NEB PRN (11:22)
[2023-01-05] MEDS ORDERED: Ondansetron PF 4 MG/2 ML Vial IVP PRN (11:22)
[2023-01-05] MEDS ORDERED: Morphine 2 MG/ML VIAL SLOW IVP PRN ×2 (11:22→15:54)
[2023-01-05] MEDS ORDERED: Sodium Chloride 0.9% 1,000 ML IV SCH (11:30)
[2023-01-05 11:38] VITALS: BMI 16.9
[2023-01-05] MEDS ORDERED: traMADol HCl 50 MG TAB PO PRN ×2 (11:51→15:55)
[2023-01-05] MEDS ORDERED: Acetaminophen 500 MG TAB PO SCH (12:00)
[2023-01-05 14:50] LABS: #Basophils 0.1 thou/uL (0.0-0.2); #Eosinphils 0.1 thou/uL (0.0-0.7); #Monocytes 0.9 thou/uL (0.11-0.59); #Neutrophils 5.8 thou/uL (1.40-6.50); %Basophils 0.6 % (0.0-1.0); %Lymphocytes 17.8 % (21.0-51.0); %Monocytes 10.8 % (0.0-10.0); %Neutrophils 69.3 % (42.0-75.0); Hematocrit 40.6 % (36.0-47.0); Hemoglobin 13.2 g/dL (12.0-16.0); Mean Corpuscular HGB CONC 32.5 g/dL (32.0-36.0); Mean Corpuscular Hemoglobin 30.9 pg (27.0-31.0); Mean Corpuscular Volume 95.1 fl (78.0-98.0); Mean Platelet Volume 10.8 fL (7.4-10.4); Platelet Count 319 10x3/uL (130-400); Red Blood Cell (RBC) Count 4.27 mill/uL (4.20-5.40); White Blood Cell (WBC) Count 8.4 10x3/uL (4.8-10.8)
[2023-01-05 15:12] LABS: Anion Gap 15 mmol/L (10-20); BUN (Urea Nitrogen) 8 mg/dL (9.8-20.1); Calc. Creatinine Clearance 53 mL/min (70-130); Calcium 8.7 mg/dL (7.8-10.44); Carbon Dioxide 25 mmol/L (23-31); Chloride 101 mmol/L (98-107); Estimated GFR 89; Glucose 114 mg/dL (83-110); Magnesium 1.4 mg/dL (1.6-2.6); Phosphorus 2.4 mg/dL (2.3-4.7); Potassium 3.2 mmol/L (3.5-5.1); Sodium 138 mmol/L (136-145)
[2023-01-05] MEDS ORDERED: Acetaminophen/Codeine 30-300mg Tablet PO PRN (15:54)
[2023-01-05] MEDS: Methocarbamol 500 MG TAB PO PRN (17:36)
[2023-01-05] MEDS: Ciprofloxacin 500 MG TAB PO SCH (20:26)
[2023-01-05] MEDS: Famotidine/PF 20 mg/2ml Vial SLOW IVP SCH (20:26)
[2023-01-06] MEDS: Methocarbamol 500 MG TAB PO PRN ×2 (02:10→20:17)
[2023-01-06] MEDS: Ciprofloxacin 500 MG TAB PO SCH ×2 (06:33→20:05)
[2023-01-06 06:35] LABS: #Basophils 0.1 thou/uL (0.0-0.2); #Eosinphils 0.2 thou/uL (0.0-0.7); #Neutrophils 5.3 thou/uL (1.40-6.50); %Basophils 0.7 % (0.0-1.0); %Eosinophils 2.3 % (0.0-10.0); %Lymphocytes 20.5 % (21.0-51.0); %Monocytes 11.6 % (0.0-10.0); %Neutrophils 64.4 % (42.0-75.0); Hemoglobin 12.9 g/dL (12.0-16.0); Mean Corpuscular HGB CONC 33.1 g/dL (32.0-36.0); Mean Corpuscular Hemoglobin 30.9 pg (27.0-31.0); Mean Corpuscular Volume 93.3 fl (78.0-98.0); Mean Platelet Volume 10.7 fL (7.4-10.4); Platelet Count 296 10x3/uL (130-400); RBC Distribution Width 13.8 % (11.5-14.5); Red Blood Cell (RBC) Count 4.18 mill/uL (4.20-5.40); White Blood Cell (WBC) Count 8.3 10x3/uL (4.8-10.8)
[2023-01-06 06:45] LABS: Manual Diff?? YES
[2023-01-06 06:47] LABS: INR-International Normal Ratio 1.2; PTT 27.4 sec (22.9-36.1); Prothrombin Time 15.2 sec (12.0-14.7)
[2023-01-06 06:56] LABS: Anion Gap 13 mmol/L (10-20); BUN (Urea Nitrogen) 6 mg/dL (9.8-20.1); Calc. Creatinine Clearance 52 mL/min (70-130); Calcium 8.9 mg/dL (7.8-10.44); Carbon Dioxide 26 mmol/L (23-31); Chloride 102 mmol/L (98-107); Estimated GFR 89; Glucose 106 mg/dL (83-110); Magnesium 1.4 mg/dL (1.6-2.6); Phosphorus 3.2 mg/dL (2.3-4.7); Potassium 2.5 mmol/L (3.5-5.1); Sodium 138 mmol/L (136-145)
[2023-01-06] MEDS ORDERED: Electrolyte Replacement Protocol 1 EACH FS SCH (07:07)
[2023-01-06 07:31] LABS: Band 4 % (5-11); CellaVision Operator ID LAB.GE; Eosinophils 2 % (0-10); Lymphocytes 9 % (21-51); Monocytes 8 % (0-10); Neutrophil 72 % (42-75); Nucleated RBC (Manual Ct) 1 % (0); Platelet Adequacy Comment Platelets Normal; Polychromasia SLIGHT = 2-3 cells HPF (0-2); Reactive Lymphocytes 5 % (0-10); Smudge Cells 17.5 %; Total Cell Count 103; Vacuoles MODERATE
[2023-01-06] MEDS ORDERED: Magnesium Sulfate In Water 4 GM in Premix Bag 1 BAG IVPB SCH (08:00)
[2023-01-06] MEDS: Potassium Chloride 20 MEQ TAB PO SCH ×2 (08:46→08:50)
[2023-01-06] MEDS: HYDROcodone/Acetaminophen 5/325 mg Tablet PO PRN ×2 (08:48→16:45)
[2023-01-06] MEDS: Ferrous Sulfate 325 MG TAB PO SCH ×2 (08:49→16:45)
[2023-01-06] MEDS: Famotidine/PF 20 mg/2ml Vial SLOW IVP SCH ×2 (08:50→20:05)
[2023-01-06 15:25] LABS: Magnesium 2.6 mg/dL (1.6-2.6); Potassium 3.7 mmol/L (3.5-5.1)
[2023-01-06] MEDS: Senokot 8.6 MG TAB PO SCH (20:05)
[2023-01-06] MEDS: Simvastatin 10 MG TAB PO SCH (20:05)
[2023-01-07 05:44] LABS: Hematocrit 41.7 % (36.0-47.0); Hemoglobin 14.2 g/dL (12.0-16.0); Mean Corpuscular HGB CONC 34.1 g/dL (32.0-36.0); Mean Corpuscular Hemoglobin 31.6 pg (27.0-31.0); Mean Corpuscular Volume 92.7 fl (78.0-98.0); Mean Platelet Volume 10.5 fL (7.4-10.4); Platelet Count 299 10x3/uL (130-400); RBC Distribution Width 13.9 % (11.5-14.5); White Blood Cell (WBC) Count 11.4 10x3/uL (4.8-10.8)
[2023-01-07 05:50] LABS: Delete Auto Diff?? YES; Manual Diff?? YES
[2023-01-07 06:05] LABS: ALT (SGPT) 9 U/L (8-55); AST (SGOT) 17 U/L (5-34); Albumin 3.3 g/dL (3.4-4.8); Alkaline Phosphatase 86 U/L (40-110); Anion Gap 13 mmol/L (10-20); BUN (Urea Nitrogen) 9 mg/dL (9.8-20.1); Bilirubin, Total 0.8 mg/dL (0.2-1.2); Calc. Creatinine Clearance 57 mL/min (70-130); Calcium 9.1 mg/dL (7.8-10.44); Carbon Dioxide 31 mmol/L (23-31); Chloride 98 mmol/L (98-107); Estimated GFR 91; Globulin 2.9 g/dL (2.4-3.5); Glucose 125 mg/dL (83-110); Magnesium 1.9 mg/dL (1.6-2.6); Phosphorus 2.8 mg/dL (2.3-4.7); Potassium 3.9 mmol/L (3.5-5.1); Protein, Total 6.2 g/dL (5.8-8.1); Sodium 138 mmol/L (136-145)
[2023-01-07] MEDS: Ciprofloxacin 500 MG TAB PO SCH (06:13)
[2023-01-07 06:18] LABS: Band 6 % (5-11); CellaVision Operator ID LAB.CLH1; Large Platelets 5.9 % (0-5); Lymphocytes 15 % (21-51); Monocytes 9 % (0-10); Neutrophil 70 % (42-75); Platelet Adequacy Comment Platelets Normal; Total Cell Count 101
[2023-01-07] MEDS ORDERED: Magnesium 2 GM/50 ML(in water) 2 GM in Premix Bag 1 BAG IVPB SCH (08:00)
[2023-01-07] MEDS: Polyethylene Glycol 3350 17 GM Packet PO SCH (08:42)
[2023-01-07] MEDS: Famotidine/PF 20 mg/2ml Vial SLOW IVP SCH ×2 (08:42→21:25)
[2023-01-07] MEDS: Ferrous Sulfate 325 MG TAB PO SCH ×2 (08:42→16:37)
[2023-01-07] MEDS: Senokot 8.6 MG TAB PO SCH ×2 (08:42→21:24)
[2023-01-07] MEDS ORDERED: Cefdinir 300 MG CAP PO SCH (10:45)
[2023-01-07] MEDS: HYDROcodone/Acetaminophen 5/325 mg Tablet PO PRN (11:16)
[2023-01-07] MEDS: Simvastatin 10 MG TAB PO SCH (21:24)
[2023-01-07] MEDS: Cefdinir 300 MG CAP PO SCH (21:25)
[2023-01-08] MEDS: Methocarbamol 500 MG TAB PO PRN ×2 (04:33→14:51)
[2023-01-08] MEDS: HYDROcodone/Acetaminophen 5/325 mg Tablet PO PRN ×3 (04:33→16:50)
[2023-01-08] MEDS: Senokot 8.6 MG TAB PO SCH (08:38)
[2023-01-08] MEDS: Cefdinir 300 MG CAP PO SCH (08:38)
[2023-01-08] MEDS: Ferrous Sulfate 325 MG TAB PO SCH (08:38)
[2023-01-08] MEDS: Polyethylene Glycol 3350 17 GM Packet PO SCH (08:39)
[2023-01-08 15:29] VITALS: TEMP 97.4
[2023-01-08 16:49] VITALS: BP 137/88
== END 2023-01-08 16:58 | DRG 543 ==
LOC: SJJU 10:58 → OBSVTOIN 11:22
PROVIDERS: ADMIT Specialist; ATTEND Specialist
DX: M84.48XA Pathological fracture, other site, initial encounter for fracture (principal); E46 Unspecified protein-calorie malnutrition; N39.0 Urinary tract infection, site not specified; Z16.29 Resistance to other single specified antibiotic; Z68.1 Body mass index [BMI] 19.9 or less, adult; R64 Cachexia; E87.6 Hypokalemia; B96.20 Unspecified Escherichia coli [E. coli] as the cause of diseases classified elsewhere; Z90.49 Acquired absence of other specified parts of digestive tract; Z90.89 Acquired absence of other organs; Z98.890 Other specified postprocedural states
CPT/HCPCS: 36415; 36416; 80048; 80053; 83735; 84100; 85025; 85610; 85730; J1650; J3475; J7050; S0028

== ENCOUNTER 2023-02-09 13:59 | Observation (INO) | payer MEDICARE, BC ==
[2023-02-09] MEDS ORDERED: Bupivacaine 0.25% 10 ML VIAL ONE (15:04)
[2023-02-09] MEDS ORDERED: Lidocaine 1% PF 5 ML VIAL ONE (15:05)
[2023-02-09] MEDS ORDERED: HYDROcodone/Acetaminophen 5/325 mg Tablet ONE (15:07)
[2023-02-10 00:10] LABS: #Basophils 0.1 thou/uL (0.0-0.2); #Eosinphils 0.2 thou/uL (0.0-0.7); #Neutrophils 5.5 thou/uL (1.40-6.50); %Basophils 0.9 % (0.0-1.0); %Eosinophils 2.3 % (0.0-10.0); %Lymphocytes 14.6 % (21.0-51.0); %Monocytes 12.9 % (0.0-10.0); %Neutrophils 68.9 % (42.0-75.0); Hematocrit 39.2 % (36.0-47.0); Hemoglobin 12.7 g/dL (12.0-16.0); Mean Corpuscular HGB CONC 32.4 g/dL (32.0-36.0); Mean Corpuscular Hemoglobin 31.4 pg (27.0-31.0); Mean Corpuscular Volume 96.8 fl (78.0-98.0); Mean Platelet Volume 11.2 fL (7.4-10.4); Platelet Count 265 10x3/uL (130-400); Red Blood Cell (RBC) Count 4.05 mill/uL (4.20-5.40)
[2023-02-10 00:39] LABS: ALT (SGPT) 8 U/L (8-55); AST (SGOT) 23 U/L (5-34); Albumin 3.6 g/dL (3.4-4.8); Alkaline Phosphatase 76 U/L (40-110); Anion Gap 15 mmol/L (10-20); BUN (Urea Nitrogen) 11 mg/dL (9.8-20.1); Bilirubin, Total 1.3 mg/dL (0.2-1.2); Calc. Creatinine Clearance 0 mL/min (70-130); Calcium 9.6 mg/dL (7.8-10.44); Carbon Dioxide 24 mmol/L (23-31); Chloride 105 mmol/L (98-107); Estimated GFR 90; Glucose 105 mg/dL (83-110); Potassium 3.7 mmol/L (3.5-5.1); Protein, Total 6.6 g/dL (5.8-8.1); Sodium 140 mmol/L (136-145)
[2023-02-10 01:24] LABS: Troponin I 0.012 ng/mL (< 0.028)
[2023-02-10] MEDS ORDERED: Sodium Chloride 0.9% 1,000 ML IV SCH (04:45)
[2023-02-10] MEDS ORDERED: Ondansetron ODT 4 MG TAB SL PRN (04:45)
[2023-02-10] MEDS ORDERED: Ondansetron PF 4 MG/2 ML Vial IVP PRN (04:45)
[2023-02-10] MEDS ORDERED: Morphine 2 MG/ML VIAL SLOW IVP PRN (07:22)
[2023-02-10] MEDS ORDERED: TETANUS, DIPHTHERIA TOX,ADULT (TDVAX) 0.5 ML VIAL IM ONE (07:22)
[2023-02-10] MEDS ORDERED: Ipratropium/Albuterol 3 ML NEB NEB PRN (07:22)
[2023-02-10] MEDS ORDERED: CEFAZOLIN 2 GM in Sodium Chloride 0.9% 100 ML IVPB SCH (07:30)
[2023-02-10] MEDS: Acetaminophen 325 MG TAB PO SCH ×3 (09:14→20:24)
[2023-02-10] MEDS ORDERED: CEFAZOLIN 2 GM VIAL ONE (12:55)
[2023-02-10] MEDS ORDERED: Sodium Chloride 0.9% 100 ML ONE (12:55)
[2023-02-10] MEDS ORDERED: fentaNYL 50 mcg/mL 1 mL Vial ONE (13:05)
[2023-02-10] MEDS ORDERED: Bupivacaine PF 0.5% 30 ML VIAL ONE (13:05)
[2023-02-10] MEDS ORDERED: fentaNYL PF 100 MCG/2 ML SYRINGE ONE (13:08)
[2023-02-10] MEDS ORDERED: Ondansetron PF 4 MG/2 ML Vial ONE (13:25)
[2023-02-10] MEDS ORDERED: Lidocaine 1% PF 5 ML VIAL ONE (13:25)
[2023-02-10] MEDS ORDERED: PROPOFOL 200 MG/20 ML VIAL ONE (13:25)
[2023-02-10] MEDS ORDERED: Dexamethasone 20 MG/5 ML VIAL ONE (13:25)
[2023-02-10] MEDS ORDERED: PHENYLEPHRINE-NS 100 MCG/ML 10 ML SYRINGE ONE (13:25)
[2023-02-10] MEDS ORDERED: Bupivacaine HCl 0.5%/Epinephrine 1:200,000/PF 30 ml Vial ONE (13:25)
[2023-02-10] MEDS ORDERED: Ondansetron HCl/PF 4 MG/2 ML Vial IVP PRN (14:08)
[2023-02-10] MEDS ORDERED: Promethazine HCl 25 MG/ML VIAL IM PRN (14:08)
[2023-02-10] MEDS ORDERED: hydrALAZINE 20 MG/ML VIAL ONE (15:09)
[2023-02-10 17:44] LABS: #Monocytes 0.3 thou/uL (0.11-0.59); #Neutrophils 9.9 thou/uL (1.40-6.50); %Basophils 0.4 % (0.0-1.0); %Eosinophils 0.1 % (0.0-10.0); %Lymphocytes 3.1 % (21.0-51.0); %Monocytes 3.1 % (0.0-10.0); %Neutrophils 92.7 % (42.0-75.0); Hematocrit 39.6 % (36.0-47.0); Hemoglobin 12.4 g/dL (12.0-16.0); Mean Corpuscular HGB CONC 31.3 g/dL (32.0-36.0); Mean Platelet Volume 11.3 fL (7.4-10.4); Platelet Count 238 10x3/uL (130-400); RBC Distribution Width 16.4 % (11.5-14.5); Red Blood Cell (RBC) Count 3.87 mill/uL (4.20-5.40); White Blood Cell (WBC) Count 10.6 10x3/uL (4.8-10.8)
[2023-02-10 18:09] LABS: ALT (SGPT) Less than 7 U/L (8-55); AST (SGOT) 19 U/L (5-34); Albumin 3.4 g/dL (3.4-4.8); Alkaline Phosphatase 75 U/L (40-110); Anion Gap 16 mmol/L (10-20); BUN (Urea Nitrogen) 7 mg/dL (9.8-20.1); Bilirubin, Total 0.7 mg/dL (0.2-1.2); Calc. Creatinine Clearance 66 mL/min (70-130); Calcium 8.7 mg/dL (7.8-10.44); Carbon Dioxide 20 mmol/L (23-31); Chloride 105 mmol/L (98-107); Estimated GFR 91; Globulin 2.5 g/dL (2.4-3.5); Glucose 104 mg/dL (83-110); Potassium 3.7 mmol/L (3.5-5.1); Protein, Total 5.9 g/dL (5.8-8.1); Sodium 137 mmol/L (136-145)
[2023-02-10 18:18] LABS: Mean Corpuscular Volume 102.3 fl (78.0-98.0)
[2023-02-10] MEDS: traMADol HCl 50 MG TAB PO PRN (20:24)
[2023-02-10] MEDS: CEFAZOLIN 2 GM in Sodium Chloride 0.9% 100 ML IVPB SCH (20:26)
[2023-02-11] MEDS: Acetaminophen 325 MG TAB PO SCH ×4 (04:45→20:09)
[2023-02-11] MEDS: CEFAZOLIN 2 GM in Sodium Chloride 0.9% 100 ML IVPB SCH (05:39)
[2023-02-11 05:47] LABS: #Monocytes 1.1 thou/uL (0.11-0.59); #Neutrophils 7.3 thou/uL (1.40-6.50); %Basophils 0.2 % (0.0-1.0); %Eosinophils 0.2 % (0.0-10.0); %Lymphocytes 9.9 % (21.0-51.0); %Monocytes 11.7 % (0.0-10.0); %Neutrophils 77.6 % (42.0-75.0); Hematocrit 32.4 % (36.0-47.0); Hemoglobin 10.4 g/dL (12.0-16.0); Mean Corpuscular HGB CONC 32.1 g/dL (32.0-36.0); Mean Corpuscular Hemoglobin 31.6 pg (27.0-31.0); Mean Platelet Volume 11.3 fL (7.4-10.4); Platelet Count 250 10x3/uL (130-400); RBC Distribution Width 16.3 % (11.5-14.5); Red Blood Cell (RBC) Count 3.29 mill/uL (4.20-5.40); White Blood Cell (WBC) Count 9.4 10x3/uL (4.8-10.8)
[2023-02-11 06:24] LABS: ALT (SGPT) Less than 7 U/L (8-55); AST (SGOT) 17 U/L (5-34); Albumin 2.9 g/dL (3.4-4.8); Alkaline Phosphatase 67 U/L (40-110); Anion Gap 11 mmol/L (10-20); BUN (Urea Nitrogen) 10 mg/dL (9.8-20.1); Bilirubin, Total 0.7 mg/dL (0.2-1.2); Calc. Creatinine Clearance 67 mL/min (70-130); Calcium 8.6 mg/dL (7.8-10.44); Carbon Dioxide 27 mmol/L (23-31); Chloride 105 mmol/L (98-107); Estimated GFR 92; Glucose 100 mg/dL (83-110); Potassium 4.5 mmol/L (3.5-5.1); Protein, Total 4.9 g/dL (5.8-8.1); Sodium 138 mmol/L (136-145)
[2023-02-11 06:34] LABS: Mean Corpuscular Volume 98.5 fl (78.0-98.0)
[2023-02-11] MEDS: Senokot S 8.6-50 MG TAB PO SCH ×2 (08:38→20:08)
[2023-02-11] MEDS: Ferrous Sulfate 325 MG TAB PO SCH ×2 (08:38→17:30)
[2023-02-11] MEDS ORDERED: Ascorbic Acid 500 mg Chewable Tablet PO SCH (09:00)
[2023-02-11] MEDS ORDERED: Polyethylene Glycol 3350 17 GM Packet PO SCH (09:00)
[2023-02-11 11:22] LABS: Bilirubin Negative (Negative); Blood, Urine Negative (Negative); CAUTI Indications for Culture Alt mental st,lethar; Clarity Turbid (Clear); Glucose, Urine (Dipstick) Normal (Negative); Ketone, Urine 10 mg/dL (Negative); Leukocyte 75 Leu/uL (Negative); Nitrite Negative (Negative); Protein, Urine (Dipstick) Negative (Neg-Trace); RBC/HPF 0-3 HPF (0-3); Specific Gravity, Urine 1.014 (1.002-1.036); Squamous Epithelial 0-3 HPF (0-3); Urobilinogen Normal mg/dL (Less than 2); pH, Urine 6.5 (5.0-9.0)
[2023-02-11 11:27] LABS: Bacteria/HPF 1+ HPF (None Seen)
[2023-02-11 11:29] LABS: Urine Culture Reflex Yes Yes
[2023-02-11] MEDS: traMADol HCl 50 MG TAB PO PRN (11:34)
[2023-02-11 19:40] VITALS: BP 97/61; TEMP 98.8
[2023-02-11] MEDS ORDERED: Nitrofurantoin Monohyd/M-Cryst 100 MG CAP PO SCH (21:00)
== END 2023-02-11 21:05 ==
LOC: ERS 13:59 → SURG B 02-10 02:27
PROVIDERS: ADMIT Surgery; ATTEND Surgery
PROC: 0PSH04Z Reposition Right Radius with Internal Fixation Device, Open Approach (ICD-10-PCS; principal; 2023-02-10)
DX: S52.571A Other intraarticular fracture of lower end of right radius, initial encounter for closed fracture (principal); E78.00 Pure hypercholesterolemia, unspecified; Z90.49 Acquired absence of other specified parts of digestive tract; Z90.89 Acquired absence of other organs; Z79.899 Other long term (current) drug therapy; W18.09XA Striking against other object with subsequent fall, initial encounter
CPT/HCPCS: 25609; 73090; 73100 ×2; 73110; 80053 ×3; 81001; 83605; 84484; 85025 ×3; 87086; 97116; 97530; 97535; C1713 ×7; G0378 ×2; J0360; J3010; 36415; J1100; J1650; J2405; J2704; J3490; J7050; S0020

== ENCOUNTER 2023-04-02 09:14 | Outpatient (CLI) | payer MEDICARE, BC | END 2023-04-02 09:15 | disposition home or self-care (01) | LOC: CT 09:14 | PROVIDERS: ATTEND Surgery | DX: S32.021A Stable burst fracture of second lumbar vertebra, initial encounter for closed fracture (principal); M48.04 Spinal stenosis, thoracic region; M47.816 Spondylosis without myelopathy or radiculopathy, lumbar region; M47.817 Spondylosis without myelopathy or radiculopathy, lumbosacral region; M48.061 Spinal stenosis, lumbar region without neurogenic claudication; N28.1 Cyst of kidney, acquired; K59.00 Constipation, unspecified; I51.7 Cardiomegaly | CPT/HCPCS: 72131 ==